=== PATIENT | female | born 1955 | race Caucasian/White ===

== ENCOUNTER 2017-12-16 10:38 | Inpatient (IN) | payer OTHER, MEDICAID ==
[2017-12-16 14:52] LABS: ADD MAN DIFF? NO
[2017-12-16 15:01] LABS: BASOPHILS % 0.2 % (0.0-2.0); EOSINOPHILS # 0.2 10^3/ul (0.0-0.5); EOSINOPHILS % 1.7 % (0.0-7.0); HEMATOCRIT 34.8 % (37.0-47.0); HEMOGLOBIN 11.6 g/dl (12.0-16.0); LYMPHOCYTES # 1.8 10^3/ul (0.8-2.9); LYMPHOCYTES % 20.9 % (15.0-51.0); MEAN CORPUSCULAR HEMOGLOBIN 27.8 pg (29.0-33.0); MEAN CORPUSCULAR HGB CONC 33.3 g/dl (32.0-37.0); MEAN CORPUSCULAR VOLUME 83.5 fl (82.0-101.0); MEAN PLATELET VOLUME 8.8 fl (7.4-10.4); MONOCYTE # 0.9 10^3/ul (0.3-0.9); MONOCYTES % 10.5 % (0.0-11.0); NEUTROPHIL # 5.7 10^3/ul (1.6-7.5); PLATELET COUNT 346 10^3/UL (140-415); RED BLOOD COUNT 4.17 10^6/ul (4.20-5.40); RED CELL DISTRIBUTION WIDTH 12.6 % (11.5-14.5)
[2017-12-16 15:01] LABS: WHITE BLOOD COUNT 8.6 10^3/ul (4.8-10.8)
[2017-12-16] MEDS: SODIUM CHLORIDE 0.9% 1L BAG IV* (15:10)
[2017-12-16] MEDS: PIPER-TAZO 3.375 GM IV (PMX) 100 ML IVPB (15:10)
[2017-12-16 15:23] LABS: INR 0.96; PROTIME 12.9 Sec (11.9-14.9)
[2017-12-16 15:24] LABS: PARTIAL THROMBOPLASTIN TIME 30.3 Sec (25.0-35.0)
[2017-12-16 15:39] LABS: LACTIC ACID 1.3 mmol/L (0.5-2.0)
[2017-12-16 15:40] LABS: ALANINE AMINOTRANSFERASE 24 IU/L (13-69); ALBUMIN 3.9 g/dl (3.3-4.9); ALBUMIN/GLOBULIN RATIO 0.75; ALKALINE PHOSPHATASE 141 IU/L (42-121); AMYLASE 82 U/L (11-123); ANION GAP 20 (8-16); ASPARTATE AMINO TRANSFERASE 30 IU/L (15-46); BILIRUBIN,INDIRECT 0.3 mg/dl (0-1.1); BILIRUBIN,TOTAL 0.3 mg/dl (0.2-1.3); BLOOD UREA NITROGEN 40 mg/dl (7-20); CALCIUM 9.6 mg/dl (8.4-10.2); CARBON DIOXIDE 25 mmol/L (21-31); CHLORIDE 94 mmol/L (97-110); CREATININE 1.22 mg/dl (0.44-1.00); GLUCOSE 308 mg/dl (70-220); LIPASE 374 U/L (23-300); POTASSIUM 4.7 mmol/L (3.5-5.1); SODIUM 134 mmol/L (135-144); TOTAL PROTEIN 9.1 g/dl (6.1-8.1)
[2017-12-16] MEDS: CLINDAMYCIN 900 MG/D5W (PMX) 50 ML IVPB (15:44)
[2017-12-16 15:51] LABS: TROPONIN-I < 0.010 ng/ml (0.000-0.120)
[2017-12-16] MEDS ORDERED: ONDANSETRON 4 MG INJ IV ×2 (16:00→16:30)
[2017-12-16] MEDS ORDERED: ACETAMINOPHEN 325 MG TAB PO (16:00)
[2017-12-16] MEDS ORDERED: BISACODYL 10 MG SUPP PR (16:30)
[2017-12-16] MEDS ORDERED: MAGNESIUM HYDROXIDE 30ML CUP PO (16:30)
[2017-12-16] MEDS ORDERED: morphine 2 MG INJ IV (16:30)
[2017-12-16] MEDS ORDERED: ACETAMINOPHEN 650 MG SUPP PR (16:30)
[2017-12-16] MEDS ORDERED: DOCUSATE SODIUM 100 MG CAP PO (16:30)
[2017-12-16] MEDS ORDERED: HYDROCODONE/APAP (5/325) TAB PO ×2 (16:30)
[2017-12-16] MEDS ORDERED: VANCOMYCIN IV PER PHARMACY XX (16:30)
[2017-12-16] MEDS: VANCOMYCIN 1 GM (PMX) 250 ML IVPB (17:09)
[2017-12-16 17:46] LABS: ADD UMIC YES; UR ASCORBIC ACID NEGATIVE (NEGATIVE); UR BACTERIA FEW /HPF (NONE SEEN); UR BILIRUBIN (Dip) NEGATIVE (NEGATIVE); UR BLOOD (Dip) 1+ mg/dL (NEGATIVE); UR CLARITY CLEAR (CLEAR); UR COLOR STRAW (YELLOW); UR GLUCOSE (Dip) 3+ mg/dL (NEGATIVE); UR KETONES (Dip) NEGATIVE (NEGATIVE); UR LEUKOCYTE ESTERASE (Dip) NEGATIVE Leu/ul (NEGATIVE); UR NITRITE (Dip) POSITIVE (NEGATIVE); UR RBC 0 /HPF (0-5); UR SPECIFIC GRAVITY (Dip) 1.005 (1.003-1.030); UR TOTAL PROTEIN (Dip) 1+ mg/dl (NEGATIVE); UR UROBILINOGEN (Dip) NEGATIVE (NEGATIVE); UR WBC 0 /HPF (0-5)
[2017-12-16] MEDS: AMLODIPINE 5 MG TAB PO (17:50)
[2017-12-16] MEDS ORDERED: DEXTROSE 50% 50 ML SYRINGE IV ×2 (19:30)
[2017-12-16] MEDS ORDERED: GLUCAGON 1 MG INJ IM (19:30)
[2017-12-16] MEDS ORDERED: GLUCOSE GEL 15 GRAM TUBE PO ×2 (19:30)
[2017-12-16] MEDS ORDERED: GLUCOSE GEL 15 GRAM TUBE BUCCAL (19:30)
[2017-12-16] MEDS: INSULIN ASPART [NOVOLOG] 3 ML PEN SC ×2 (20:00→20:34)
[2017-12-16] MEDS: SOD CHLORIDE 0.9% 1,000 ML IV (20:11)
[2017-12-16] MEDS: METOPROLOL 25 MG TAB PO (20:11)
[2017-12-16] MEDS: INSULIN GLARGINE [LANTus] (100 UNITS/ML) SYG SC (20:29)
[2017-12-17] MEDS: ACCU-CHEK XX (02:00)
[2017-12-17] MEDS: SOD CHLORIDE 0.9% 1,000 ML IV ×2 (04:34→10:19)
[2017-12-17] MEDS: ACETAMINOPHEN 325 MG TAB PO ×2 (05:47→22:04)
[2017-12-17] MEDS: PANTOPRAZOLE 40 MG INJ IV (05:47)
[2017-12-17 06:32] LABS: ALANINE AMINOTRANSFERASE 23 IU/L (13-69); ALBUMIN 2.8 g/dl (3.3-4.9); ALBUMIN/GLOBULIN RATIO 0.75; ALKALINE PHOSPHATASE 95 IU/L (42-121); ANION GAP 13 (8-16); ASPARTATE AMINO TRANSFERASE 21 IU/L (15-46); BILIRUBIN,INDIRECT 0.1 mg/dl (0-1.1); BILIRUBIN,TOTAL 0.1 mg/dl (0.2-1.3); BLOOD UREA NITROGEN 26 mg/dl (7-20); CALCIUM 8.4 mg/dl (8.4-10.2); CARBON DIOXIDE 22 mmol/L (21-31); CHLORIDE 106 mmol/L (97-110); CHOL/HDL RATIO 8.2 RATIO; CHOLESTEROL 141 mg/dl (100-200); GLUCOSE 181 mg/dl (70-220); HDL CHOLESTEROL 17 mg/dl (35-98); LDL CHOLESTEROL,CALCULATED 90 mg/dl; MAGNESIUM 1.7 mg/dl (1.7-2.5); PHOSPHORUS 3.8 mg/dl (2.5-4.9); POTASSIUM 4.5 mmol/L (3.5-5.1); SODIUM 136 mmol/L (135-144); TOTAL PROTEIN 6.5 g/dl (6.1-8.1); TRIGLYCERIDES 171 mg/dl (0-149)
[2017-12-17 06:46] LABS: FREE THYROXINE INDEX (Calc) 3.25 ug/ml (0.65-3.89); T3 UPTAKE 41.1 % (23.5-40.5); T4 (THYROXINE) 7.9 ug/dl (5.5-11.0)
[2017-12-17] MEDS: METOPROLOL 25 MG TAB PO ×2 (08:27→21:57)
[2017-12-17] MEDS: AMLODIPINE 5 MG TAB PO (08:28)
[2017-12-17] MEDS: INSULIN ASPART [NOVOLOG] 3 ML PEN SC ×7 (08:31→22:12)
[2017-12-17 09:43] LABS: HEMOGLOBIN A1C 11.4 % (0-5.9)
[2017-12-17] MEDS: VANCOMYCIN 1 GM 250 ML IVPB (11:29)
[2017-12-17] MEDS ORDERED: morphine LIQ (10 MG/5 ML) CUP PO (14:00)
[2017-12-17] MEDS: hydrALAzine 20 MG INJ IV (16:34)
[2017-12-17] MEDS: SACCHAROMYCES BOULARDII 250 MG CAP PO ×2 (18:20→21:57)
[2017-12-17] MEDS: FISH OIL 1,000 MG CAP PO (21:58)
[2017-12-17] MEDS: INSULIN GLARGINE [LANTus] (100 UNITS/ML) SYG SC (22:02)
[2017-12-17] MEDS: VANCOMYCIN 500MG/NS (PMX) 100 ML IVPB (23:41)
[2017-12-18] MEDS: ACCU-CHEK XX (02:00)
[2017-12-18] MEDS: SOD CHLORIDE 0.9% 1,000 ML IV ×4 (02:16→18:04)
[2017-12-18] MEDS: PANTOPRAZOLE 40 MG INJ IV (05:47)
[2017-12-18] MEDS: INSULIN ASPART [NOVOLOG] 3 ML PEN SC ×7 (08:00→20:19)
[2017-12-18] MEDS: FISH OIL 1,000 MG CAP PO ×2 (08:53→21:35)
[2017-12-18] MEDS: SACCHAROMYCES BOULARDII 250 MG CAP PO ×2 (08:53→20:16)
[2017-12-18] MEDS: AMLODIPINE 5 MG TAB PO (08:54)
[2017-12-18] MEDS: METOPROLOL 25 MG TAB PO ×2 (08:55→20:17)
[2017-12-18] MEDS: ACETAMINOPHEN 325 MG TAB PO (09:34)
[2017-12-18] MEDS: VANCOMYCIN 500MG/NS (PMX) 100 ML IVPB (11:42)
[2017-12-18 12:19] LABS: ADD MAN DIFF? NO
[2017-12-18 12:29] LABS: BASOPHILS % 0.2 % (0.0-2.0); EOSINOPHILS # 0.1 10^3/ul (0.0-0.5); EOSINOPHILS % 1.6 % (0.0-7.0); HEMATOCRIT 32.1 % (37.0-47.0); HEMOGLOBIN 10.4 g/dl (12.0-16.0); LYMPHOCYTES # 1.9 10^3/ul (0.8-2.9); LYMPHOCYTES % 20.8 % (15.0-51.0); MEAN CORPUSCULAR HEMOGLOBIN 27.4 pg (29.0-33.0); MEAN CORPUSCULAR HGB CONC 32.4 g/dl (32.0-37.0); MEAN CORPUSCULAR VOLUME 84.5 fl (82.0-101.0); MEAN PLATELET VOLUME 9.1 fl (7.4-10.4); MONOCYTES % 10.7 % (0.0-11.0); NEUTROPHIL # 5.9 10^3/ul (1.6-7.5); NEUTROPHILS % 66.1 % (39.0-77.0); PLATELET COUNT 357 10^3/UL (140-415)
[2017-12-18 12:29] LABS: WHITE BLOOD COUNT 8.9 10^3/ul (4.8-10.8)
[2017-12-18 12:50] LABS: ALANINE AMINOTRANSFERASE 27 IU/L (13-69); ALBUMIN 3.5 g/dl (3.3-4.9); ALBUMIN/GLOBULIN RATIO 0.67; ALKALINE PHOSPHATASE 119 IU/L (42-121); ANION GAP 13 (8-16); ASPARTATE AMINO TRANSFERASE 32 IU/L (15-46); BILIRUBIN,INDIRECT 0.2 mg/dl (0-1.1); BILIRUBIN,TOTAL 0.2 mg/dl (0.2-1.3); BLOOD UREA NITROGEN 16 mg/dl (7-20); CALCIUM 8.9 mg/dl (8.4-10.2); CARBON DIOXIDE 23 mmol/L (21-31); CHLORIDE 106 mmol/L (97-110); CREATININE 0.86 mg/dl (0.44-1.00); GLUCOSE 162 mg/dl (70-220); POTASSIUM 4.1 mmol/L (3.5-5.1); SODIUM 138 mmol/L (135-144); TOTAL PROTEIN 8.7 g/dl (6.1-8.1)
[2017-12-18] MEDS: INSULIN GLARGINE [LANTus] (100 UNITS/ML) SYG SC (20:20)
[2017-12-18 22:40] LABS: VANCOMYCIN,TROUGH 9.7 ug/ml (10.0-20.0)
[2017-12-19] MEDS: SODIUM HYPOCHLORITE (1/40) 1 APPLIC BTL IRR ×3 (00:13→20:28)
[2017-12-19] MEDS: VANCOMYCIN 750 MG in SOD CHLORIDE 0.9% 150 ML IVPB ×2 (00:13→12:05)
[2017-12-19] MEDS: SILVER SULFADIAZINE 1% 25 GM CR TOP ×3 (00:14→20:28)
[2017-12-19] MEDS: ACETAMINOPHEN 325 MG TAB PO (00:30)
[2017-12-19] MEDS: ACCU-CHEK XX (02:00)
[2017-12-19] MEDS: PANTOPRAZOLE 40 MG INJ IV (06:16)
[2017-12-19] MEDS: SOD CHLORIDE 0.9% 1,000 ML IV ×3 (06:34→19:04)
[2017-12-19 06:40] LABS: ADD MAN DIFF? NO
[2017-12-19 06:47] LABS: WHITE BLOOD COUNT 7.6 10^3/ul (4.8-10.8)
[2017-12-19 06:47] LABS: BASOPHILS % 0.3 % (0.0-2.0); EOSINOPHILS # 0.1 10^3/ul (0.0-0.5); EOSINOPHILS % 1.9 % (0.0-7.0); HEMATOCRIT 28.8 % (37.0-47.0); HEMOGLOBIN 9.5 g/dl (12.0-16.0); LYMPHOCYTES # 1.8 10^3/ul (0.8-2.9); LYMPHOCYTES % 23.8 % (15.0-51.0); MEAN CORPUSCULAR HEMOGLOBIN 27.5 pg (29.0-33.0); MEAN CORPUSCULAR VOLUME 83.2 fl (82.0-101.0); MEAN PLATELET VOLUME 8.9 fl (7.4-10.4); MONOCYTE # 0.9 10^3/ul (0.3-0.9); MONOCYTES % 11.8 % (0.0-11.0); NEUTROPHIL # 4.7 10^3/ul (1.6-7.5); NEUTROPHILS % 61.8 % (39.0-77.0); PLATELET COUNT 297 10^3/UL (140-415); RED BLOOD COUNT 3.46 10^6/ul (4.20-5.40)
[2017-12-19 07:34] LABS: ANION GAP 14 (8-16); BLOOD UREA NITROGEN 19 mg/dl (7-20); CALCIUM 8.5 mg/dl (8.4-10.2); CARBON DIOXIDE 21 mmol/L (21-31); CHLORIDE 107 mmol/L (97-110); CREATININE 0.85 mg/dl (0.44-1.00); GLUCOSE 175 mg/dl (70-220); SODIUM 138 mmol/L (135-144)
[2017-12-19] MEDS: SACCHAROMYCES BOULARDII 250 MG CAP PO ×2 (08:17→20:25)
[2017-12-19] MEDS: METOPROLOL 25 MG TAB PO ×2 (08:18→20:26)
[2017-12-19] MEDS: AMLODIPINE 5 MG TAB PO ×2 (08:18→20:25)
[2017-12-19] MEDS: INSULIN ASPART [NOVOLOG] 3 ML PEN SC ×7 (09:38→20:37)
[2017-12-19] MEDS: FISH OIL 1,000 MG CAP PO ×2 (10:00→20:25)
[2017-12-19] MEDS: LISINOPRIL 5 MG TAB PO (12:11)
[2017-12-19] MEDS: INSULIN GLARGINE [LANTus] (100 UNITS/ML) SYG SC (20:36)
[2017-12-20] MEDS: hydrALAzine 20 MG INJ IV ×3 (00:02→19:01)
[2017-12-20] MEDS: NACL 0.9% 3 ML SYG IV (00:04)
[2017-12-20] MEDS: ACCU-CHEK XX ×2 (02:00→20:18)
[2017-12-20] MEDS: PANTOPRAZOLE 40 MG INJ IV (05:56)
[2017-12-20 06:02] LABS: ADD MAN DIFF? NO
[2017-12-20 06:07] LABS: WHITE BLOOD COUNT 6.8 10^3/ul (4.8-10.8)
[2017-12-20 06:07] LABS: BASOPHILS % 0.1 % (0.0-2.0); EOSINOPHILS # 0.2 10^3/ul (0.0-0.5); EOSINOPHILS % 2.3 % (0.0-7.0); HEMATOCRIT 27.5 % (37.0-47.0); HEMOGLOBIN 9.2 g/dl (12.0-16.0); LYMPHOCYTES # 1.7 10^3/ul (0.8-2.9); LYMPHOCYTES % 25.5 % (15.0-51.0); MEAN CORPUSCULAR HGB CONC 33.5 g/dl (32.0-37.0); MEAN CORPUSCULAR VOLUME 83.8 fl (82.0-101.0); MEAN PLATELET VOLUME 9.3 fl (7.4-10.4); MONOCYTE # 0.8 10^3/ul (0.3-0.9); MONOCYTES % 11.6 % (0.0-11.0); NEUTROPHIL # 4.1 10^3/ul (1.6-7.5); NEUTROPHILS % 60.1 % (39.0-77.0); PLATELET COUNT 313 10^3/UL (140-415); RED BLOOD COUNT 3.28 10^6/ul (4.20-5.40); RED CELL DISTRIBUTION WIDTH 12.9 % (11.5-14.5)
[2017-12-20 06:54] LABS: ANION GAP 11 (8-16); BLOOD UREA NITROGEN 21 mg/dl (7-20); CALCIUM 8.4 mg/dl (8.4-10.2); CARBON DIOXIDE 20 mmol/L (21-31); CHLORIDE 111 mmol/L (97-110); CREATININE 0.85 mg/dl (0.44-1.00); GLUCOSE 151 mg/dl (70-220); POTASSIUM 4.1 mmol/L (3.5-5.1); SODIUM 138 mmol/L (135-144)
[2017-12-20] MEDS: SOD CHLORIDE 0.9% 1,000 ML IV ×2 (07:34→15:36)
[2017-12-20] MEDS: ACETAMINOPHEN 325 MG TAB PO (08:23)
[2017-12-20] MEDS: SACCHAROMYCES BOULARDII 250 MG CAP PO ×2 (08:23→20:15)
[2017-12-20] MEDS: FISH OIL 1,000 MG CAP PO ×2 (08:23→20:16)
[2017-12-20] MEDS: AMLODIPINE 5 MG TAB PO ×2 (08:24→20:16)
[2017-12-20] MEDS: LISINOPRIL 5 MG TAB PO (08:24)
[2017-12-20] MEDS: METOPROLOL 25 MG TAB PO ×2 (08:24→20:16)
[2017-12-20] MEDS: SILVER SULFADIAZINE 1% 25 GM CR TOP ×2 (08:25→20:17)
[2017-12-20] MEDS: SODIUM HYPOCHLORITE (1/40) 1 APPLIC BTL IRR ×2 (08:25→20:17)
[2017-12-20] MEDS: INSULIN ASPART [NOVOLOG] 3 ML PEN SC ×7 (10:00→20:16)
[2017-12-20] MEDS: INSULIN GLARGINE [LANTus] (100 UNITS/ML) SYG SC (20:35)
[2017-12-21] MEDS: DEXTROSE 5%-0.45% NACL 1,000 ML IV (02:01)
[2017-12-21] MEDS: hydrALAzine 20 MG INJ IV (03:01)
[2017-12-21] MEDS: PANTOPRAZOLE 40 MG INJ IV (06:10)
[2017-12-21] MEDS: INSULIN ASPART [NOVOLOG] 3 ML PEN SC ×5 (06:15→22:02)
[2017-12-21 06:36] LABS: ADD MAN DIFF? NO
[2017-12-21 06:40] LABS: WHITE BLOOD COUNT 5.6 10^3/ul (4.8-10.8)
[2017-12-21 06:40] LABS: BASOPHILS % 0.4 % (0.0-2.0); EOSINOPHILS # 0.2 10^3/ul (0.0-0.5); EOSINOPHILS % 2.7 % (0.0-7.0); HEMOGLOBIN 9.5 g/dl (12.0-16.0); LYMPHOCYTES # 1.6 10^3/ul (0.8-2.9); LYMPHOCYTES % 28.3 % (15.0-51.0); MEAN CORPUSCULAR HEMOGLOBIN 27.3 pg (29.0-33.0); MEAN CORPUSCULAR HGB CONC 32.8 g/dl (32.0-37.0); MEAN CORPUSCULAR VOLUME 83.3 fl (82.0-101.0); MEAN PLATELET VOLUME 9.1 fl (7.4-10.4); MONOCYTE # 0.7 10^3/ul (0.3-0.9); MONOCYTES % 12.1 % (0.0-11.0); NEUTROPHIL # 3.1 10^3/ul (1.6-7.5); NEUTROPHILS % 56.1 % (39.0-77.0); PLATELET COUNT 330 10^3/UL (140-415); RED BLOOD COUNT 3.48 10^6/ul (4.20-5.40); RED CELL DISTRIBUTION WIDTH 13.2 % (11.5-14.5)
[2017-12-21 07:05] LABS: ANION GAP 13 (8-16); BLOOD UREA NITROGEN 20 mg/dl (7-20); CALCIUM 8.8 mg/dl (8.4-10.2); CARBON DIOXIDE 21 mmol/L (21-31); CHLORIDE 110 mmol/L (97-110); CREATININE 0.77 mg/dl (0.44-1.00); GLUCOSE 180 mg/dl (70-220); SODIUM 140 mmol/L (135-144)
[2017-12-21] MEDS: SACCHAROMYCES BOULARDII 250 MG CAP PO ×2 (08:38→23:20)
[2017-12-21] MEDS: FISH OIL 1,000 MG CAP PO ×3 (08:38→21:51)
[2017-12-21] MEDS: METOPROLOL 25 MG TAB PO ×2 (08:39→21:51)
[2017-12-21] MEDS: SILVER SULFADIAZINE 1% 25 GM CR TOP ×2 (08:43→21:53)
[2017-12-21] MEDS: SODIUM HYPOCHLORITE (1/40) 1 APPLIC BTL IRR ×2 (08:43→21:53)
[2017-12-21] MEDS: LISINOPRIL 5 MG TAB PO (08:43)
[2017-12-21] MEDS: AMLODIPINE 5 MG TAB PO ×3 (08:44→21:52)
[2017-12-21] MEDS: CIPROFLOXACIN 500 MG TAB PO ×2 (12:55→18:10)
[2017-12-21] MEDS: INSULIN GLARGINE [LANTus] (100 UNITS/ML) SYG SC (22:02)
[2017-12-22] MEDS: DEXTROSE 5%-0.45% NACL 1,000 ML IV ×3 (00:18→21:41)
[2017-12-22] MEDS: ACCU-CHEK XX (02:00)
[2017-12-22] MEDS: hydrALAzine 20 MG INJ IV ×3 (03:20→20:37)
[2017-12-22] MEDS: CIPROFLOXACIN 500 MG TAB PO ×2 (06:04→17:53)
[2017-12-22] MEDS: PANTOPRAZOLE 40 MG INJ IV (06:04)
[2017-12-22 07:13] LABS: ADD MAN DIFF? NO
[2017-12-22 07:15] LABS: BASOPHILS % 0.4 % (0.0-2.0); EOSINOPHILS # 0.2 10^3/ul (0.0-0.5); EOSINOPHILS % 2.9 % (0.0-7.0); HEMATOCRIT 29.4 % (37.0-47.0); HEMOGLOBIN 9.9 g/dl (12.0-16.0); LYMPHOCYTES # 1.9 10^3/ul (0.8-2.9); LYMPHOCYTES % 34.4 % (15.0-51.0); MEAN CORPUSCULAR HGB CONC 33.7 g/dl (32.0-37.0); MEAN CORPUSCULAR VOLUME 83.3 fl (82.0-101.0); MEAN PLATELET VOLUME 9.1 fl (7.4-10.4); MONOCYTE # 0.7 10^3/ul (0.3-0.9); MONOCYTES % 11.9 % (0.0-11.0); NEUTROPHIL # 2.7 10^3/ul (1.6-7.5); NEUTROPHILS % 49.8 % (39.0-77.0); PLATELET COUNT 354 10^3/UL (140-415); RED BLOOD COUNT 3.53 10^6/ul (4.20-5.40); RED CELL DISTRIBUTION WIDTH 13.3 % (11.5-14.5)
[2017-12-22 07:15] LABS: WHITE BLOOD COUNT 5.4 10^3/ul (4.8-10.8)
[2017-12-22 07:48] LABS: ANION GAP 13 (8-16); BLOOD UREA NITROGEN 17 mg/dl (7-20); CARBON DIOXIDE 22 mmol/L (21-31); CHLORIDE 109 mmol/L (97-110); CREATININE 0.76 mg/dl (0.44-1.00); GLUCOSE 210 mg/dl (70-220); POTASSIUM 4.2 mmol/L (3.5-5.1); SODIUM 140 mmol/L (135-144)
[2017-12-22 07:52] LABS: MAGNESIUM 1.5 mg/dl (1.7-2.5)
[2017-12-22 07:52] LABS: PHOSPHORUS 3.9 mg/dl (2.5-4.9)
[2017-12-22] MEDS: METOPROLOL 25 MG TAB PO (09:00)
[2017-12-22] MEDS: SACCHAROMYCES BOULARDII 250 MG CAP PO ×2 (09:00→21:00)
[2017-12-22] MEDS: FISH OIL 1,000 MG CAP PO ×2 (09:00→21:00)
[2017-12-22] MEDS: LISINOPRIL 5 MG TAB PO (09:00)
[2017-12-22] MEDS: AMLODIPINE 5 MG TAB PO (09:00)
[2017-12-22] MEDS: INSULIN ASPART [NOVOLOG] 3 ML PEN SC ×7 (09:18→21:51)
[2017-12-22] MEDS: MAGNESIUM SULFATE 2 GM/50 ML 50 ML IVPB (12:41)
[2017-12-22] MEDS: SILVER SULFADIAZINE 1% 25 GM CR TOP ×2 (12:46→21:00)
[2017-12-22] MEDS: SODIUM HYPOCHLORITE (1/40) 1 APPLIC BTL IRR ×2 (12:46→21:00)
[2017-12-23] MEDS ORDERED: ROPIVACAINE 0.5 % 30 ML VIAL (00:55)
[2017-12-23] MEDS ORDERED: LIDOCAINE 1% (MDV) 20 ML INJ (00:55)
[2017-12-23] MEDS ORDERED: ETOMIDATE 20 MG INJ (00:55)
[2017-12-23] MEDS ORDERED: MIDAZOLAM 1 MG/ML 2 ML INJ (00:55)
[2017-12-23] MEDS ORDERED: SUCCINYLCHOLINE CHLORIDE 100 MG/5 ML SYG IV (00:55)
[2017-12-23] MEDS ORDERED: ONDANSETRON 4 MG INJ (00:55)
[2017-12-23] MEDS: BACITRACIN 50000 UNITS INJ (01:06)
[2017-12-23] MEDS: POLYMYXIN B 500000 UNIT INJ (01:07)
[2017-12-23] MEDS: POLYMYXIN/BACITRACIN 1L IRRIG (01:07)
[2017-12-23] MEDS ORDERED: ONDANSETRON 4 MG INJ IV (01:30)
[2017-12-23] MEDS ORDERED: hydrALAzine 20 MG INJ IV (01:30)
[2017-12-23] MEDS ORDERED: LABETALOL HCL 20MG INJ IV (01:30)
[2017-12-23] MEDS ORDERED: HYDROmorphONE 1 MG/5 ML IV SYRINGE IV (01:30)
[2017-12-23] MEDS: hydrALAzine 20 MG INJ IV (01:35)
[2017-12-23] MEDS: ACCU-CHEK XX (02:00)
[2017-12-23] MEDS: INSULIN GLARGINE [LANTus] (100 UNITS/ML) SYG SC ×2 (03:06→20:35)
[2017-12-23] MEDS: AMLODIPINE 5 MG TAB PO ×3 (03:07→20:30)
[2017-12-23] MEDS: METOPROLOL 25 MG TAB PO ×3 (03:07→20:30)
[2017-12-23] MEDS: PANTOPRAZOLE 40 MG INJ IV (05:33)
[2017-12-23] MEDS: CIPROFLOXACIN 500 MG TAB PO ×2 (05:33→17:30)
[2017-12-23] MEDS ORDERED: CEFAZOLIN 1 GM INJ (07:00)
[2017-12-23 07:42] LABS: ADD MAN DIFF? NO
[2017-12-23 07:46] LABS: WHITE BLOOD COUNT 6.3 10^3/ul (4.8-10.8)
[2017-12-23 07:46] LABS: BASOPHILS % 0.3 % (0.0-2.0); EOSINOPHILS # 0.1 10^3/ul (0.0-0.5); EOSINOPHILS % 1.9 % (0.0-7.0); HEMATOCRIT 27.9 % (37.0-47.0); HEMOGLOBIN 9.3 g/dl (12.0-16.0); LYMPHOCYTES # 1.7 10^3/ul (0.8-2.9); LYMPHOCYTES % 27.2 % (15.0-51.0); MEAN CORPUSCULAR HEMOGLOBIN 28.2 pg (29.0-33.0); MEAN CORPUSCULAR HGB CONC 33.3 g/dl (32.0-37.0); MEAN CORPUSCULAR VOLUME 84.5 fl (82.0-101.0); MEAN PLATELET VOLUME 9.1 fl (7.4-10.4); MONOCYTE # 0.9 10^3/ul (0.3-0.9); MONOCYTES % 13.5 % (0.0-11.0); NEUTROPHIL # 3.6 10^3/ul (1.6-7.5); NEUTROPHILS % 56.6 % (39.0-77.0); PLATELET COUNT 346 10^3/UL (140-415); RED CELL DISTRIBUTION WIDTH 13.3 % (11.5-14.5)
[2017-12-23 08:13] LABS: ANION GAP 12 (8-16); BLOOD UREA NITROGEN 16 mg/dl (7-20); CALCIUM 8.6 mg/dl (8.4-10.2); CARBON DIOXIDE 23 mmol/L (21-31); CHLORIDE 108 mmol/L (97-110); CREATININE 0.81 mg/dl (0.44-1.00); GLUCOSE 198 mg/dl (70-220); POTASSIUM 3.8 mmol/L (3.5-5.1); SODIUM 139 mmol/L (135-144)
[2017-12-23] MEDS: SACCHAROMYCES BOULARDII 250 MG CAP PO ×2 (08:15→20:29)
[2017-12-23] MEDS: FISH OIL 1,000 MG CAP PO ×2 (08:15→20:29)
[2017-12-23] MEDS: ACETAMINOPHEN 325 MG TAB PO (08:15)
[2017-12-23] MEDS: INSULIN ASPART [NOVOLOG] 3 ML PEN SC ×7 (08:16→20:36)
[2017-12-23] MEDS: SILVER SULFADIAZINE 1% 25 GM CR TOP ×2 (08:17→09:00)
[2017-12-23] MEDS: LISINOPRIL 5 MG TAB PO (08:17)
[2017-12-23] MEDS: SODIUM HYPOCHLORITE (1/40) 1 APPLIC BTL IRR ×2 (08:17→09:00)
[2017-12-23 08:21] LABS: PHOSPHORUS 4.3 mg/dl (2.5-4.9)
[2017-12-23 08:21] LABS: MAGNESIUM 1.9 mg/dl (1.7-2.5)
[2017-12-24] MEDS: ACCU-CHEK XX (02:00)
[2017-12-24] MEDS: PANTOPRAZOLE 40 MG INJ IV (06:04)
[2017-12-24] MEDS: CIPROFLOXACIN 500 MG TAB PO ×2 (06:04→17:52)
[2017-12-24 06:52] LABS: ADD MAN DIFF? NO
[2017-12-24 07:09] LABS: BASOPHILS % 0.2 % (0.0-2.0); EOSINOPHILS # 0.1 10^3/ul (0.0-0.5); EOSINOPHILS % 1.6 % (0.0-7.0); HEMATOCRIT 29.4 % (37.0-47.0); HEMOGLOBIN 9.7 g/dl (12.0-16.0); LYMPHOCYTES # 1.9 10^3/ul (0.8-2.9); LYMPHOCYTES % 30.8 % (15.0-51.0); MEAN CORPUSCULAR HEMOGLOBIN 27.5 pg (29.0-33.0); MEAN CORPUSCULAR VOLUME 83.3 fl (82.0-101.0); MEAN PLATELET VOLUME 8.8 fl (7.4-10.4); MONOCYTE # 0.7 10^3/ul (0.3-0.9); MONOCYTES % 11.7 % (0.0-11.0); NEUTROPHIL # 3.4 10^3/ul (1.6-7.5); NEUTROPHILS % 55.4 % (39.0-77.0); PLATELET COUNT 332 10^3/UL (140-415); RED BLOOD COUNT 3.53 10^6/ul (4.20-5.40); RED CELL DISTRIBUTION WIDTH 13.5 % (11.5-14.5)
[2017-12-24 07:09] LABS: WHITE BLOOD COUNT 6.1 10^3/ul (4.8-10.8)
[2017-12-24 07:19] LABS: ANION GAP 15 (8-16); BLOOD UREA NITROGEN 15 mg/dl (7-20); CARBON DIOXIDE 23 mmol/L (21-31); CHLORIDE 108 mmol/L (97-110); CREATININE 0.82 mg/dl (0.44-1.00); GLUCOSE 161 mg/dl (70-220); SODIUM 142 mmol/L (135-144)
[2017-12-24] MEDS: INSULIN ASPART [NOVOLOG] 3 ML PEN SC ×7 (08:34→21:16)
[2017-12-24] MEDS: SACCHAROMYCES BOULARDII 250 MG CAP PO ×2 (08:35→21:13)
[2017-12-24] MEDS: LISINOPRIL 5 MG TAB PO (08:35)
[2017-12-24] MEDS: FISH OIL 1,000 MG CAP PO ×2 (08:35→21:13)
[2017-12-24] MEDS: METOPROLOL 25 MG TAB PO ×2 (08:35→21:14)
[2017-12-24] MEDS: ACETAMINOPHEN 325 MG TAB PO (08:36)
[2017-12-24] MEDS: AMLODIPINE 5 MG TAB PO ×2 (08:36→21:14)
[2017-12-24 08:51] LABS: PHOSPHORUS 4.2 mg/dl (2.5-4.9)
[2017-12-24 08:51] LABS: MAGNESIUM 1.8 mg/dl (1.7-2.5)
[2017-12-24] MEDS: INSULIN GLARGINE [LANTus] (100 UNITS/ML) SYG SC (21:15)
[2017-12-25] MEDS: ACCU-CHEK XX (02:42)
[2017-12-25] MEDS: ACETAMINOPHEN 325 MG TAB PO (02:54)
[2017-12-25] MEDS: CIPROFLOXACIN 500 MG TAB PO ×2 (05:38→17:42)
[2017-12-25] MEDS: PANTOPRAZOLE 40 MG INJ IV (05:38)
[2017-12-25 08:07] LABS: ADD MAN DIFF? NO
[2017-12-25 08:16] LABS: WHITE BLOOD COUNT 5.6 10^3/ul (4.8-10.8)
[2017-12-25 08:16] LABS: BASOPHILS % 0.4 % (0.0-2.0); EOSINOPHILS # 0.1 10^3/ul (0.0-0.5); EOSINOPHILS % 2.3 % (0.0-7.0); HEMATOCRIT 31.8 % (37.0-47.0); HEMOGLOBIN 10.4 g/dl (12.0-16.0); LYMPHOCYTES # 1.7 10^3/ul (0.8-2.9); LYMPHOCYTES % 29.6 % (15.0-51.0); MEAN CORPUSCULAR HEMOGLOBIN 27.2 pg (29.0-33.0); MEAN CORPUSCULAR HGB CONC 32.7 g/dl (32.0-37.0); MEAN PLATELET VOLUME 9.1 fl (7.4-10.4); MONOCYTE # 0.7 10^3/ul (0.3-0.9); MONOCYTES % 12.3 % (0.0-11.0); NEUTROPHIL # 3.1 10^3/ul (1.6-7.5); PLATELET COUNT 358 10^3/UL (140-415); RED BLOOD COUNT 3.83 10^6/ul (4.20-5.40); RED CELL DISTRIBUTION WIDTH 13.2 % (11.5-14.5)
[2017-12-25] MEDS: FISH OIL 1,000 MG CAP PO ×2 (08:21→20:50)
[2017-12-25] MEDS: LISINOPRIL 5 MG TAB PO (08:21)
[2017-12-25] MEDS: METOPROLOL 25 MG TAB PO ×2 (08:21→20:51)
[2017-12-25] MEDS: AMLODIPINE 5 MG TAB PO ×2 (08:22→20:52)
[2017-12-25] MEDS: SACCHAROMYCES BOULARDII 250 MG CAP PO ×2 (08:22→20:50)
[2017-12-25] MEDS: INSULIN ASPART [NOVOLOG] 3 ML PEN SC ×7 (08:26→20:56)
[2017-12-25 08:46] LABS: PHOSPHORUS 4.1 mg/dl (2.5-4.9)
[2017-12-25 08:46] LABS: MAGNESIUM 1.7 mg/dl (1.7-2.5)
[2017-12-25 08:47] LABS: ANION GAP 14 (8-16); BLOOD UREA NITROGEN 17 mg/dl (7-20); CALCIUM 9.2 mg/dl (8.4-10.2); CARBON DIOXIDE 23 mmol/L (21-31); CHLORIDE 106 mmol/L (97-110); CREATININE 0.83 mg/dl (0.44-1.00); GLUCOSE 168 mg/dl (70-220); POTASSIUM 4.1 mmol/L (3.5-5.1); SODIUM 139 mmol/L (135-144)
[2017-12-25] MEDS: INSULIN GLARGINE [LANTus] (100 UNITS/ML) SYG SC (20:57)
[2017-12-26] MEDS: ACCU-CHEK XX (02:00)
[2017-12-26] MEDS: PANTOPRAZOLE 40 MG INJ IV (05:12)
[2017-12-26] MEDS: CIPROFLOXACIN 500 MG TAB PO ×2 (05:15→17:14)
[2017-12-26 06:08] LABS: ADD MAN DIFF? NO
[2017-12-26 06:15] LABS: BASOPHILS % 0.5 % (0.0-2.0); EOSINOPHILS # 0.2 10^3/ul (0.0-0.5); EOSINOPHILS % 2.9 % (0.0-7.0); HEMATOCRIT 31.1 % (37.0-47.0); HEMOGLOBIN 10.2 g/dl (12.0-16.0); LYMPHOCYTES # 2.1 10^3/ul (0.8-2.9); MEAN CORPUSCULAR HEMOGLOBIN 27.5 pg (29.0-33.0); MEAN CORPUSCULAR HGB CONC 32.8 g/dl (32.0-37.0); MEAN CORPUSCULAR VOLUME 83.8 fl (82.0-101.0); MONOCYTE # 0.8 10^3/ul (0.3-0.9); MONOCYTES % 13.3 % (0.0-11.0); NEUTROPHIL # 2.8 10^3/ul (1.6-7.5); NEUTROPHILS % 47.8 % (39.0-77.0); PLATELET COUNT 353 10^3/UL (140-415); RED BLOOD COUNT 3.71 10^6/ul (4.20-5.40); RED CELL DISTRIBUTION WIDTH 13.2 % (11.5-14.5)
[2017-12-26 06:15] LABS: WHITE BLOOD COUNT 5.9 10^3/ul (4.8-10.8)
[2017-12-26 06:38] LABS: PHOSPHORUS 4.9 mg/dl (2.5-4.9)
[2017-12-26 06:38] LABS: MAGNESIUM 1.7 mg/dl (1.7-2.5)
[2017-12-26 06:48] LABS: ANION GAP 14 (8-16); BLOOD UREA NITROGEN 26 mg/dl (7-20); CALCIUM 9.1 mg/dl (8.4-10.2); CARBON DIOXIDE 24 mmol/L (21-31); CHLORIDE 105 mmol/L (97-110); CREATININE 0.95 mg/dl (0.44-1.00); GLUCOSE 157 mg/dl (70-220); POTASSIUM 4.2 mmol/L (3.5-5.1); SODIUM 139 mmol/L (135-144)
[2017-12-26] MEDS: SACCHAROMYCES BOULARDII 250 MG CAP PO ×2 (08:05→20:13)
[2017-12-26] MEDS: FISH OIL 1,000 MG CAP PO ×2 (08:05→20:14)
[2017-12-26] MEDS: METOPROLOL 25 MG TAB PO ×2 (08:06→20:14)
[2017-12-26] MEDS: AMLODIPINE 5 MG TAB PO ×2 (08:06→20:14)
[2017-12-26] MEDS: LISINOPRIL 5 MG TAB PO (08:06)
[2017-12-26] MEDS: INSULIN ASPART [NOVOLOG] 3 ML PEN SC ×7 (08:13→20:21)
[2017-12-26] MEDS: metFORMIN 500 MG TAB PO (17:14)
[2017-12-26] MEDS: INSULIN GLARGINE [LANTus] (100 UNITS/ML) SYG SC (20:21)
[2017-12-27] MEDS: ACCU-CHEK XX (01:04)
[2017-12-27] MEDS: PANTOPRAZOLE (EC) 40 MG TAB PO (06:19)
[2017-12-27] MEDS: CIPROFLOXACIN 500 MG TAB PO ×2 (06:19→17:23)
[2017-12-27] MEDS: INSULIN ASPART [NOVOLOG] 3 ML PEN SC ×7 (07:00→21:00)
[2017-12-27] MEDS: SACCHAROMYCES BOULARDII 250 MG CAP PO ×2 (08:17→20:34)
[2017-12-27] MEDS: FISH OIL 1,000 MG CAP PO ×2 (08:17→20:35)
[2017-12-27] MEDS: AMLODIPINE 5 MG TAB PO ×2 (08:18→20:35)
[2017-12-27] MEDS: LISINOPRIL 5 MG TAB PO (08:18)
[2017-12-27] MEDS: METOPROLOL 25 MG TAB PO ×2 (08:18→20:35)
[2017-12-27] MEDS: metFORMIN 500 MG TAB PO ×2 (08:26→17:23)
[2017-12-27] MEDS: INSULIN GLARGINE [LANTus] (100 UNITS/ML) SYG SC (20:39)
[2017-12-28] MEDS: ACCU-CHEK XX (01:22)
[2017-12-28 05:24] LABS: ADD MAN DIFF? NO
[2017-12-28 05:28] LABS: WHITE BLOOD COUNT 4.9 10^3/ul (4.8-10.8)
[2017-12-28 05:28] LABS: BASOPHILS % 0.4 % (0.0-2.0); EOSINOPHILS # 0.2 10^3/ul (0.0-0.5); EOSINOPHILS % 3.5 % (0.0-7.0); HEMATOCRIT 30.1 % (37.0-47.0); LYMPHOCYTES # 1.8 10^3/ul (0.8-2.9); MEAN CORPUSCULAR HEMOGLOBIN 28.2 pg (29.0-33.0); MEAN CORPUSCULAR HGB CONC 33.2 g/dl (32.0-37.0); MEAN CORPUSCULAR VOLUME 84.8 fl (82.0-101.0); MEAN PLATELET VOLUME 9.5 fl (7.4-10.4); MONOCYTE # 0.7 10^3/ul (0.3-0.9); MONOCYTES % 14.9 % (0.0-11.0); NEUTROPHIL # 2.2 10^3/ul (1.6-7.5); PLATELET COUNT 320 10^3/UL (140-415); RED BLOOD COUNT 3.55 10^6/ul (4.20-5.40); RED CELL DISTRIBUTION WIDTH 13.2 % (11.5-14.5)
[2017-12-28] MEDS: PANTOPRAZOLE (EC) 40 MG TAB PO (05:33)
[2017-12-28] MEDS: CIPROFLOXACIN 500 MG TAB PO ×2 (05:33→18:05)
[2017-12-28 06:00] LABS: PHOSPHORUS 4.7 mg/dl (2.5-4.9)
[2017-12-28 06:00] LABS: ANION GAP 14 (8-16); BLOOD UREA NITROGEN 30 mg/dl (7-20); CALCIUM 9.2 mg/dl (8.4-10.2); CARBON DIOXIDE 23 mmol/L (21-31); CHLORIDE 106 mmol/L (97-110); CREATININE 0.93 mg/dl (0.44-1.00); GLUCOSE 144 mg/dl (70-220); MAGNESIUM 1.7 mg/dl (1.7-2.5); POTASSIUM 4.6 mmol/L (3.5-5.1); SODIUM 138 mmol/L (135-144)
[2017-12-28] MEDS: INSULIN ASPART [NOVOLOG] 3 ML PEN SC ×6 (07:00→17:58)
[2017-12-28] MEDS: SACCHAROMYCES BOULARDII 250 MG CAP PO (08:30)
[2017-12-28] MEDS: METOPROLOL 25 MG TAB PO (08:31)
[2017-12-28] MEDS: metFORMIN 500 MG TAB PO ×2 (08:31→18:03)
[2017-12-28] MEDS: FISH OIL 1,000 MG CAP PO (08:31)
[2017-12-28] MEDS: AMLODIPINE 5 MG TAB PO (08:31)
[2017-12-28] MEDS: LISINOPRIL 5 MG TAB PO (08:32)
== END 2017-12-28 20:45 | disposition home health service (06) | DRG 617 ==
LOC: E/R 10:38 → 2NE 15:48
PROC: 0Y6Q0Z3 Detachment at Left 1st Toe, Low, Open Approach (ICD-10-PCS; principal; 2017-12-22 00:25)
PROC: 0J9R0ZZ Drainage of Left Foot Subcutaneous Tissue and Fascia, Open Approach (ICD-10-PCS; 2017-12-22 00:25)
DX: E11.69 Type 2 diabetes mellitus with other specified complication (principal); L02.612 Cutaneous abscess of left foot; M86.172 Other acute osteomyelitis, left ankle and foot; E11.621 Type 2 diabetes mellitus with foot ulcer; N17.9 Acute kidney failure, unspecified; L97.529 Non-pressure chronic ulcer of other part of left foot with unspecified severity; L03.032 Cellulitis of left toe; I10 Essential (primary) hypertension; E78.5 Hyperlipidemia, unspecified; D64.9 Anemia, unspecified; E11.42 Type 2 diabetes mellitus with diabetic polyneuropathy; B95.61 Methicillin susceptible Staphylococcus aureus infection as the cause of diseases classified elsewhere; B96.89 Other specified bacterial agents as the cause of diseases classified elsewhere; Z79.4 Long term (current) use of insulin
CPT/HCPCS: 71045; 73630-LT; 73718; 80048; 80053; 80061; 80202; 81001; 82150; 82962; 83036; 83605; 83690; 83735; 84100; 84436; 84443; 84479; 84484; 85025; 85610; 85730; 87040; 87070; 87086; 87102; 88304; 88311; 93005; 96374; 96375; 97116; 97161; 97530; 99285-25

== ENCOUNTER 2018-01-11 07:44 | Day surgery (SDC) | payer OTHER ==
[2018-01-11 08:42] LABS: ADD MAN DIFF? NO
[2018-01-11 08:44] LABS: WHITE BLOOD COUNT 4.3 10^3/ul (4.8-10.8)
[2018-01-11 08:44] LABS: BASOPHILS % 0.2 % (0.0-2.0); EOSINOPHILS # 0.2 10^3/ul (0.0-0.5); EOSINOPHILS % 4.6 % (0.0-7.0); HEMATOCRIT 33.4 % (37.0-47.0); HEMOGLOBIN 10.9 g/dl (12.0-16.0); LYMPHOCYTES # 1.9 10^3/ul (0.8-2.9); LYMPHOCYTES % 43.6 % (15.0-51.0); MEAN CORPUSCULAR HEMOGLOBIN 27.9 pg (29.0-33.0); MEAN CORPUSCULAR HGB CONC 32.6 g/dl (32.0-37.0); MEAN CORPUSCULAR VOLUME 85.4 fl (82.0-101.0); MEAN PLATELET VOLUME 10.2 fl (7.4-10.4); MONOCYTE # 0.6 10^3/ul (0.3-0.9); MONOCYTES % 13.9 % (0.0-11.0); NEUTROPHIL # 1.6 10^3/ul (1.6-7.5); NEUTROPHILS % 37.5 % (39.0-77.0); PLATELET COUNT 223 10^3/UL (140-415); RED BLOOD COUNT 3.91 10^6/ul (4.20-5.40); RED CELL DISTRIBUTION WIDTH 14.1 % (11.5-14.5)
[2018-01-11 08:48] LABS: HOLD TRANSMISSIONS 1
[2018-01-11] MEDS ORDERED: LACTATED RINGER'S 1,000 ML IV ×2 (09:00)
[2018-01-11 09:02] LABS: INR 0.95; PROTIME 12.8 Sec (11.9-14.9)
[2018-01-11 09:03] LABS: PARTIAL THROMBOPLASTIN TIME 29.1 Sec (25.0-35.0)
[2018-01-11 09:10] LABS: ANION GAP 16 (8-16); BLOOD UREA NITROGEN 30 mg/dl (7-20); CALCIUM 9.7 mg/dl (8.4-10.2); CARBON DIOXIDE 22 mmol/L (21-31); CHLORIDE 106 mmol/L (97-110); CREATININE 0.98 mg/dl (0.44-1.00); GLUCOSE 152 mg/dl (70-220); POTASSIUM 4.5 mmol/L (3.5-5.1); SODIUM 139 mmol/L (135-144)
[2018-01-11] MEDS ORDERED: THROMBIN 5000 UNIT VIAL ×2 (09:57)
[2018-01-11] MEDS ORDERED: MINERAL OIL LIGHT 10 ML VIAL ×2 (09:58)
[2018-01-11] MEDS ORDERED: FENTAnyl 50 MCG/ML VIAL IV ×2 (10:00)
[2018-01-11] MEDS ORDERED: PROCHLORPERAZINE 10 MG INJ IV ×2 (10:00)
[2018-01-11] MEDS ORDERED: ONDANSETRON 4 MG INJ IV ×2 (10:00)
[2018-01-11] MEDS ORDERED: hydrALAzine 20 MG INJ IV ×2 (10:00)
[2018-01-11] MEDS ORDERED: HYDROmorphONE 1 MG/5 ML IV SYRINGE IV ×2 (10:00)
[2018-01-11] MEDS ORDERED: DIPHENHYDRAMINE 50 MG INJ IV ×2 (10:00)
[2018-01-11] MEDS ORDERED: MEPERIDINE 25 MG INJ IV ×2 (10:00)
[2018-01-11] MEDS ORDERED: LIDOCAINE 2% (SDV) 5 ML INJ ×2 (10:22)
[2018-01-11] MEDS ORDERED: PROPOFOL 20 ML ×2 (10:22)
[2018-01-11] MEDS ORDERED: MIDAZOLAM 1 MG/ML 2 ML INJ ×2 (10:23)
[2018-01-11] MEDS ORDERED: LIDOCAINE 1% (MPF) 30 ML INJ ×2 (10:32)
[2018-01-11] MEDS ORDERED: CEFAZOLIN 1 GM INJ ×2 (10:34)
[2018-01-11] MEDS: CEFAZOLIN 2 GM/50 ML (PMX) 50 ML IVPB ×2 (10:35)
[2018-01-11] MEDS ORDERED: FENTAnyl 50 MCG/ML VIAL ×2 (10:37)
[2018-01-11] MEDS ORDERED: FAMOTIDINE 20 MG INJ ×2 (10:43)
[2018-01-11] MEDS ORDERED: ONDANSETRON 4 MG INJ ×2 (10:43)
[2018-01-11] MEDS ORDERED: EPHEDrine SULFATE 50 MG/5 ML SYG ×2 (10:59)
[2018-01-11] MEDS: LIDOCAINE 1%/EPI 30 ML INJ ×2 (11:44)
[2018-01-11] MEDS: LABETALOL HCL 20MG INJ IV ×2 (11:46)
[2018-01-11] MEDS: INSULIN ASPART [NOVOLOG] 3 ML PEN SC ×2 (12:40)
[2018-01-11] MEDS ORDERED: CEPHALEXIN 500 MG CAP PO ×2 (14:00)
== END 2018-01-11 13:18 | disposition home or self-care (01) ==
LOC: SDS 07:44
DX: E11.621 Type 2 diabetes mellitus with foot ulcer (principal); I10 Essential (primary) hypertension
CPT/HCPCS: 11042; 80048; 82962; 85025; 85610; 85730; 87070; 87075; 87102